=== PATIENT | male | born 1975 | race Caucasian/White ===

== ENCOUNTER 2018-01-06 07:27 | Day surgery (SDC) | payer BC ==
[2018-01-06] MEDS ORDERED: Propofol 10 mg/ml Inj (20 ML) ONE (09:44)
--- NOTE | 2018-01-06 09:45 | CP.SDSHP ---
Same Day Surgery H & P - History Proposed Procedure: EGD Pre-Op Diagnosis: heartburn - Allergies Allergies: Allergies SEASONAL Allergy (Uncoded 01/06/18 08:13) CONGESTION - Physical Exam General Appearance: NAD Vital Signs: Vital Signs 01/06/18 08:16 Temperature 97.3 F L Pulse Rate 57 L Respiratory 19 Rate Blood Pressure 127/76 O2 Sat by Pulse 100 Oximetry Mental Status: Alert & Oriented x3 Neuro: WNL Heart: WNL Lungs: WNL GI: WNL - {Optional Preform as Required} Abdomen: WNL - Impression Pt. Evaluated Today:Candidate for Anesthesia & Procedure: Yes - Date & Time Date: 01/06/18 Time: 09:45 Short Stay Discharge - Short Stay Discharge Admitting Diagnosis/Reason for Visit: HEARTBURN Disposition: HOME/ ROUTINE
[2018-01-06] MEDS ORDERED: Lactated Ringer's 1,000 ML IV ONE (09:46)
[2018-01-06 11:08] VITALS: BP 117/80; PULSE 55; RESP 15; TEMP 97.6; O2SAT 100
== END 2018-01-06 11:05 | disposition home or self-care (01) ==
LOC: C.ENDO 07:27
PROVIDERS: ATTEND Internal Medicine Gastroenterology
DX: K21.0 Gastro-esophageal reflux disease with esophagitis (principal); K29.70 Gastritis, unspecified, without bleeding; K31.89 Other diseases of stomach and duodenum; J30.2 Other seasonal allergic rhinitis; Z90.89 Acquired absence of other organs
CPT/HCPCS: 43239; 88305; 88312; 88313; 88342; J2001; J2704; J7120